=== PATIENT | male | born 1975 | race Caucasian/White ===

== ENCOUNTER 2017-02-26 01:38 | Emergency (ER) | payer MEDICAID ==
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
[2017-02-26 02:45] VITALS: O2SAT 92
[2017-02-26 03:25] LABS: % IMMATURE GRANULYOCYTES 0.9 % (0.0-1.1); ABSOLUTE IMMATURE GRANULOCYTES 0.06 10^3/uL (0.00-0.10); ADD DIFF? NO; ADD MORPH? NO; ADD SCAN? NO; ATYPICAL LYMPHOCYTE FLAG 0 (0-99); FRAGMENT RBC FLAG 0 (0-99); HEMATOCRIT 46.4 % (40.0-51.0); LEFT SHIFT FLG 0 (0-99); LIPEMIA HEMOLYSIS FLAG 90 (0-99); MEAN CELL HEMOGLOBIN 32.4 pg (27.9-34.1); MEAN CELL HEMOGLOBIN CONCENTR. 36.6 g/dL (32.4-36.7); MEAN CELL VOLUME 88.5 fL (81.5-99.8); PLATELET CLUMPS FLAG 0 (0-99); PLATELET COUNT 239 10^3/uL (150-400); RED BLOOD CELL COUNT 5.24 10^6/uL (4.40-6.38); RED CELL DISTRIBUTION WIDTH 11.9 % (11.5-15.2)
[2017-02-26 03:30] LABS: ANION GAP 19 mEq/L (8-16); CALCIUM 9.2 mg/dL (8.5-10.4); CARBON DIOXIDE 22 mEq/l (22-31); CHLORIDE 96 mEq/L (97-110); CREATININE 0.9 mg/dL (0.7-1.3); GLOMERULAR FILTRATION RATE > 60; POTASSIUM 4.5 mEq/L (3.5-5.2); SODIUM 137 mEq/L (134-144)
[2017-02-26 03:32] LABS: GLUCOSE 564 mg/dL (70-100)
[2017-02-26] MEDS ORDERED: NS 1,000 ML IV ONE (03:41)
[2017-02-26 05:49] VITALS: BP 122/81; PULSE 93; RESP 19; TEMP 97.9
== END 2017-02-26 05:47 | disposition home or self-care (01) ==
LOC: EDUNIT#
PROC: 0HQLXZZ Repair Left Lower Leg Skin, External Approach (ICD-10-PCS; principal; 2017-02-26)
DX: S81.812A Laceration without foreign body, left lower leg, initial encounter (principal); S01.412A Laceration without foreign body of left cheek and temporomandibular area, initial encounter; F17.200 Nicotine dependence, unspecified, uncomplicated; E11.65 Type 2 diabetes mellitus with hyperglycemia; E86.9 Volume depletion, unspecified; Y04.0XXA Assault by unarmed brawl or fight, initial encounter; Y92.89 Other specified places as the place of occurrence of the external cause

== ENCOUNTER 2017-07-04 15:25 | Emergency (ER) | payer MEDICAID ==
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
[2017-07-04 15:34] VITALS: BP 123/81; PULSE 92; RESP 16; TEMP 98.2; O2SAT 92
== END 2017-07-04 15:44 | disposition home or self-care (01) ==
LOC: EDUNIT#
DX: F10.229 Alcohol dependence with intoxication, unspecified (principal); F17.210 Nicotine dependence, cigarettes, uncomplicated; W01.198A Fall on same level from slipping, tripping and stumbling with subsequent striking against other object, initial encounter; Y92.811 Bus as the place of occurrence of the external cause; Y99.8 Other external cause status; Y93.89 Activity, other specified

== ENCOUNTER 2017-09-02 09:52 | Emergency (ER) | payer OTHER, MEDICAID ==
[2017-09-02 09:56] VITALS: BP 140/96
[2017-09-02] MEDS ORDERED: PROPARACAINE 0.5% 15 ML OPHT DROP ONE (10:10)
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
[2017-09-02] MEDS ORDERED: PROPARACAINE 0.5% 15 ML OPHT DROP LEFTEYE ONE (10:18)
== END 2017-09-02 10:48 | disposition home or self-care (01) ==
DX: H54.7 Unspecified visual loss (principal); F17.200 Nicotine dependence, unspecified, uncomplicated